=== PATIENT | male | born 1985 | race Caucasian/White ===

== ENCOUNTER 2023-08-03 15:01 | Outpatient (CLI) | payer OTHER ==
--- NOTE | 2023-08-03 15:31 | Sleep Patient Instructions ---
Sleep Center Visit Summary - Patient Visit Information Reason for Visit: Initial consult for evaluation of sleep disordered breathing and other sleep issues. - Patient Instructions Instructions Attached: Sleep Study Additional Instructions: You will be completing a sleep study, either an in-lab polysomnography (PSG) or home sleep study (HST). You will follow-up in the sleep care office after the sleep study is completed to hear the results and talk about therapy, if needed. You will be called by our office staff to schedule this appointment, but you may contact us with any questions. - Clinic Information Contact: [facility] [address] [place] [address] [email or web address] T: [phone]
--- NOTE | 2023-08-03 15:37 | SLEEP CARE CONSULTATION ---
Information from patient questionnaire entered by Jericho Ramos. I have reviewed and concur with the information entered by Jericho Ramos. This document represents the service I personally performed and the decisions made by me, Sarai Avery ARNP. History of Present Illness Service Date and Time: 08/03/2023 1501 Reason for Visit: New patient Chief Complaint: reports: Unrefreshed sleep, Snoring, Excessive daytime sleepiness, Fatigue, Frequent awakenings at night Date of Onset: 5-10YRS Usual bedtime: VARIES Time it takes to fall asleep: 30MINS-2HRS Snores at night: Yes Observed to quit breathing while asleep: No Sleeps alone due to snoring: No Number of times waking at night: 2-5 Reasons for waking at night: reports: Choking, Snoring (when falls asleep on couch or recliner), Other (NOISE UNKNOWN). denies: Gasping for air Toss, Turn, or Twitch while sleeping: Yes Recalls having dreams: Yes Usually gets out of bed at: VARIES Feels refreshed in the morning: No Morning headache: No Sleepy or fatigued during the day: Yes Ever fallen asleep while driving: No Takes day naps: No Dreams during day naps: Yes Prior sleep studies: No Additional HPI information: I had the pleasure of seeing JULIANO SANDHU today regarding the possibility of him having a sleep disorder. His current complaints are excessive daytime sleepiness, fatigue, frequent night awakenings, snoring and unrefreshed sleep. He says he always has had trouble sleeping but it has worsened lately. He is waking up frequently and sometimes will wake up after 4 hours and not be able to go back to sleep. He says it does not matter how much sleep he gets, he is always tired. He has no problem going to sleep. He feels "groggy" all the time, feels like his brain is "foggy". He says he has woke up coughing but denies waking up gasping for air. He does talk in his sleep sometimes but denies sleep walking. His grandfather had sleep apnea and he thinks his father does but he has never been tested. He is currently working second shift and gets off about 11 PM and has been on this for 6 months. He says sometimes he has to get up early to help get kids off to school. He tries to get enough sleep before going to work by taking a nap but this is usually broken sleep. He does drink caffeine beverages to stay awake at work. - Parasomnia Symptoms Ever been unable to move upon waking from sleep: No Walks in sleep: No Talks in sleep: Yes Ever acted out dreams in sleep: No Ever felt weak in the knees when startled or emotional: Yes Bothered by creepy, crawly, restless sensations in legs: Yes (always moving legs when trying to sleep) Problems with memory or concentration: Yes (both) Subjective Initial [place] Sleepiness Scale score: 12 (08/03/23) Past Medical History Past Medical History: reports: Other (no significant medical history) Social History The patient's occupation is a AM. Patient is and lives in [place]. Have you smoked in the past 12 months: No Cigarettes per day (20/pack): 10 Years of smokin Quit date: 2017 Smoking Pack Years: 5.0 Alcohol use: Yes Alcohol amount and frequency: 12 PACK WEEKENDS Caffeine use: Yes Caffeine amount and frequency: 2-3 A DAY Family History Family history of sleep disordered breathing: Yes Family Hx Sleep Apnea: Father: Snoring, Sleep apnea - Untreated, Grandparent: Snoring, Sleep apnea - Treated Allergies and Home Medications Known drug allergies: No Drug allergies reviewed: Yes Home medication list reviewed: Yes (no regular medications or supplements) Review of Systems Cardiovascular: denies: high blood pressure Gastrointestinal: denies: heartburn Neurological: denies: headaches Psychiatric: denies: anxiety, depression Ear/Nose/Throat: reports: wisdom teeth removed. denies: tonsillectomy Physical Exam Vital signs obtained and entered by: JERICHO Klein MA Blood Pressure: 147/88 (LEFT ARM) Cuff size: long Heart Rate: 79 O2 Saturation: 97 Height: 5 ft 8 in Weight: 216 lb Body Mass Index: 32.8 BMI Classification: Obese Neck circumference: 17 Mouth and throat: narrow oropharynx Soft palate: long Hard palate: arched Uvula: normal Uvula visualization: 0% Mallampati Class IV Tongue: enlarged in size with teeth hall on lateral edges Tonsils: small Neck: normal w/o lymphadenopathy or thyromegaly Heart: regular rate and rhythm Lungs: clear bilaterally Impression and Plan 1. Suspected Obstructive Sleep Apnea-Hypopnea Syndrome, as suggested by a history of loud and irregular snoring, frequent awakening during the night, unrefreshed sleep, cognitive impairment, and excessive daytime sleepiness. Narrow oropharynx and obesity are common predisposing factors for obstructive sleep apnea-hypopnea syndrome. I recommend proceeding to polysomnography to confirm the diagnosis and to assess severity. If the patient has significant sleep disordered breathing, a manual CPAP titration study will also be performed to find the optimal treatment pressure. I informed the patient of what the sleep studies involve and after some discussion, obtained agreement to proceed. The pathophysiology of obstructive sleep apnea-hypopnea syndrome was discussed with the patient and health risks of cardiovascular and cerebrovascular disease if not treated. Risks of drowsy driving discussed in detail and patient advised to avoid long distance driving and to pullman car clerk at the first sign of drowsiness. Patient agreed to plan. * Schedule polysomnography. * Avoid long distance driving or driving when feeling sleepy. * Avoid alcohol, sedative and muscle relaxant around bedtime. * Attempt to lose weight. * Review instructions provided by trained office staff on how to prepare for the sleep study. * Return for follow-up after sleep study completed. Counseling Topics: Weight loss health impact Plan: PSG and followup Visit Type: In Office Time Spent with Patient (minutes): 30 Provider Statement: I spent 100% of the Face to Face Visit with the patient with greater than 50% spent counseling the patient and coordination of care.
[2023-08-03 15:38] VITALS: BP 147/88; O2SAT 97
== END 2023-08-03 15:02 | disposition home or self-care (01) ==
LOC: SC 15:01
PROVIDERS: ATTEND Nurse Practitioner Family
DX: R06.83 Snoring (principal); G47.8 Other sleep disorders; R41.89 Other symptoms and signs involving cognitive functions and awareness; G47.10 Hypersomnia, unspecified; Z87.891 Personal history of nicotine dependence; E66.9 Obesity, unspecified; Z68.32 Body mass index [BMI] 32.0-32.9, adult
CPT/HCPCS: 99203; 99212

== ENCOUNTER 2023-09-13 20:27 | Outpatient (CLI) | payer OTHER | END 2023-09-13 20:28 | disposition home or self-care (01) | LOC: SC 20:27 | PROVIDERS: ATTEND Nurse Practitioner Family | DX: G47.33 Obstructive sleep apnea (adult) (pediatric) (principal); E66.9 Obesity, unspecified; Z68.32 Body mass index [BMI] 32.0-32.9, adult | CPT/HCPCS: 95810 ==

== ENCOUNTER 2023-10-14 14:02 | Outpatient (CLI) | payer OTHER ==
--- NOTE | 2023-10-14 13:59 | SLEEP CARE CONSULTATION ---
Information from patient questionnaire entered by Carol Ramos. I have reviewed and concur with the information entered by Carol Ramos. This document represents the service I personally performed and the decisions made by me, Sarai Avery ARNP. History of Present Illness Service Date and Time: 10/14/2023 1340 Initial [place] Sleepiness Scale score: 12 (08/03/23) Current [place] Sleepiness Scale score: 12 (10/14/23) Additional HPI information: JULIANO SANDHU returns via video appointment today for follow up and results of the recently performed polysomnography. The sleep study done on 09/13/2023 showed mild obstructive sleep apnea with an average AHI of 6.4 and gurvinder oxygen saturation of 85%. I explained the pathophysiology behind obstructive sleep apnea. We then spent quite a bit of time discussing different treatment options. For mild obstructive sleep apnea, surgery and oral appliance are alternatives to nasal CPAP therapy but in moderate or severe cases, nasal CPAP is the most effective and reliable treatment. Because apnea is primarily in supine position, then positional management therapy could be effective. Methods discussed such as positioning with pillows, using a T-shirt with tennis balls in the back or commercial products that have a pillow format on back to prevent supine sleep. I reviewed the impact of weight changes on sleep apnea and strongly recommended losing weight. After some discussion, the patient opted to go with the nasal CPAP therapy. Nasal autoCPAP set at 4-15 cmH20 will be ordered with rationale explained. A manual titration study will be ordered if unable to find optimal pressure with office adjustments. I explained how CPAP machine works and what to expect when using the machine. Using CPAP every night in order to get used to it was emphasized. Patient advised to put CPAP mask on before getting into bed so as not to fall asleep without CPAP. To assist acclimation to CPAP use, it could also be used for a short time during day while reading or watching TV. The patient was instructed to call the CPAP supplier to discuss any mechanical problem that may occur. If the mask given is uncomfortable or is difficult to keep on through the night even with adjustment, contact the CPAP supplier as many will replace with another mask style if notified before 30 days. If snoring or perceives is not getting enough air or too much air from the machine, notify this office. Patient was cautioned about risks of drowsy driving until sleepiness symptoms resolve. Sleep Study - Results Type of Sleep Study: Polysomnography (COMPLETED 09/13/23) Prior sleep studies: No Polysomnography/Home Sleep Study results: IMPRESSION: The quality of the study is good. The patient had normal sleep efficiency. The sleep architecture was also normal. Respiratory monitoring showed mild obstructive sleep apnea- hypopnea (AHI = 6.4) associated with oxyhemoglobin desaturation and mild hypoxia (gurvinder oxygen saturation of 85%) but not sleep fragmentation. The respiratory events occurred almost exclusively during supine sleep (supine AHI = 15.7; non-supine = 3.53). Snore was light to moderate in intensity. There was no significant periodic leg movement of sleep. Cardiac rhythm was normal sinus rhythm without significant arrhythmia. No abnormal behavior (parasomnia) observed during the night. Allergies and Home Medications Known drug allergies: No Drug allergies reviewed: Yes Home medication list reviewed: Yes (no changes) Allergy and home medication list: Allergies No Known Drug Allergies Allergy (Verified 08/03/23 14:57) Review of Systems Review of systems same as previous: Yes (NO CHANGE) Physical Exam Vital signs obtained and entered by: CAROL Klein MA Height: 5 ft 8 in (PER PT) Weight: 200 lb (PER PT) Body Mass Index: 30.4 BMI Classification: Obese Impression and Plan 1. Obstructive Sleep Apnea-Hypopnea Syndrome, mild, with lowest oxygen saturation of 85%. Obviously this is the cause of the patients symptoms of unrefreshed sleep, and excessive daytime sleepiness. As mentioned above, the patient will be started on nasal autoCPAP therapy with pressure set at 4-15 cmH2 O. A manual titration study will be completed if unable to find optimal treatment pressure with office adjustments. Compliance guidelines also reviewed. A copy of compliance guidelines will be given for reference at check out. Because the apnea is more severe supine, I instructed to avoid sleeping supine using pillow positioning until able to start CPAP use. 2. Obesity, unspecified. Currently patients BMI is 30.4. Obesity increases the risk of apnea, CPAP pressure requirements and overall health risks especially cardiovascular and diabetes. Thus patient is advised to lose weight. * Nasal auto CPAP therapy, pressure at 4-15 cm H2O. * Attempt to lose weight. * Avoid alcohol consumption near bedtime. * Avoid supine sleep until using CPAP. * The patient is again cautioned about driving until sleepiness completely resolves. * Return one month after CPAP obtained. I will assess response to therapy and compliance at that time. Counseling Topics: Sleeping position, Weight loss health impact Prescriptions: Auto CPAP Visit Type: Telehealth Video Video Type: Doximity Patient Location: [place] Location of Provider: Office Patient agrees and consents to this telehealth visit type: Yes Patient agrees to have their insurance billed: Yes Time Spent with Patient (minutes): 12 Provider Statement: I spent 100% of the Telehealth Video Call with the patient with greater than 50% spent counseling the patient and coordination of care.
== END 2023-10-14 14:03 | disposition home or self-care (01) ==
LOC: SC 14:02
PROVIDERS: ATTEND Nurse Practitioner Family
DX: G47.33 Obstructive sleep apnea (adult) (pediatric) (principal); E66.9 Obesity, unspecified; Z68.30 Body mass index [BMI] 30.0-30.9, adult